=== PATIENT | female | born 1950 | race Caucasian/White ===

== ENCOUNTER 2016-12-13 14:48 | Emergency (ER) | payer MEDICARE, OTHER ==
[~2016-12-13 14:48] MED LIST: ALEVE; ANTIVERT PO; AZITHROMYCIN250 MG PO; FLONASE 0.05% N16 G1; KETOPROFEN PO; MULTI-VITAMIN1 TAB; ULTRAM PO; VICODIN PO; ZOFRAN PO
== END 2016-12-13 14:53 | disposition home or self-care (01) ==
LOC: CED 14:48
DX: R20.8 Other disturbances of skin sensation (principal); R09.81 Nasal congestion; E78.5 Hyperlipidemia, unspecified; F17.210 Nicotine dependence, cigarettes, uncomplicated; Z90.49 Acquired absence of other specified parts of digestive tract; Z90.710 Acquired absence of both cervix and uterus; Z98.890 Other specified postprocedural states
CPT/HCPCS: 99282; J1200